=== PATIENT | male | born 1960 | race Caucasian/White ===

== ENCOUNTER 2019-02-12 01:21 | Outpatient (CLI) | payer MEDICAID, SELFPAY ==
[2019-02-12 12:09] LABS: HCT 48.9 % (40.0-50.0); Mean Corp. HGB Concentration 34.8 g/dL (32.0-36.0); Mean Corpuscular Hemoglobin 30.2 pg (27.0-33.0); Mean Corpuscular Volume 86.9 fL (80-95); Mean Platelet Volume 10.1 fL (8.0-11.0); Platelet Count 241 x1000/uL (130-400); RBC 5.63 m/cumm (4.50-6.00); RBC Distribution Width 12.6 % (11.8-14.1); White Blood Cell Count 6.13 k/cumm (4.4-10.8)
[2019-02-12 12:19] LABS: Hemoglobin A1C 5.7 % (4.5-6.2)
[2019-02-12 12:23] LABS: CREATININE 1.19 mg/dL (0.70-1.30); Calculated LDL 125 mg/dL; Cholesterol 181 mg/dL (50-200); HDL Cholesterol 38 mg/dL (40-60); Triglyceride 90 mg/dL (30-150)
[2019-02-14 16:09] LABS: MTHFR A1298C Mutation Analysis Negative (Negative); Methylenetetrahydrofol Reduc M Heterozygous (Negative)
== END 2019-02-12 01:41 ==
PROVIDERS: PCP Family Medicine; Visit Provider Family Medicine
DX: E66.9 Obesity, unspecified (principal); E74.39 Other disorders of intestinal carbohydrate absorption; R53.83 Other fatigue; Z13.71 Encounter for nonprocreative screening for genetic disease carrier status
CPT/HCPCS: 36415; 80061; 81291; 83721; 85027; 82565; 83036

== ENCOUNTER 2019-03-04 01:46 | Outpatient (CLI) | payer MEDICAID, SELFPAY ==
[2019-03-05 09:52] LABS: PSA, Screening 2.4 ng/ml (0-3.5)
[2019-03-05 11:13] LABS: Homocysteine 15.3 umol/L (4.5-12.4)
== END 2019-03-04 02:06 ==
PROVIDERS: PCP Family Medicine; Visit Provider Family Medicine
DX: D68.59 Other primary thrombophilia (principal); Z12.5 Encounter for screening for malignant neoplasm of prostate
CPT/HCPCS: 36415; 83090; 84153

== ENCOUNTER 2019-07-24 11:03 | Outpatient (CLI) | payer MEDICAID, SELFPAY ==
[2019-07-25 15:17] LABS: PSA, Screening 2.7 ng/mL (0.0-3.5)
== END 2019-07-24 11:23 ==
PROVIDERS: PCP Family Medicine; Visit Provider Nurse Practitioner Gerontology
DX: Z80.42 Family history of malignant neoplasm of prostate (principal); Z12.5 Encounter for screening for malignant neoplasm of prostate
CPT/HCPCS: 36415; 84153

== ENCOUNTER 2023-05-18 02:11 | Outpatient (CLI) | payer MEDICAID, SELFPAY ==
[2023-05-18 12:21] LABS: Calculated LDL 128 mg/dL (<100); Cholesterol 194 mg/dL (<200); HDL Cholesterol 43 mg/dL (40-60); Triglyceride 116 mg/dL (<150)
[2023-05-18 12:35] LABS: Hemoglobin A1C 5.7 % (<5.7)
== END 2023-05-18 02:12 | disposition home or self-care (01) ==
LOC: LOS 02:11
PROVIDERS: PCP Family Medicine; Visit Provider Family Medicine
DX: E78.5 Hyperlipidemia, unspecified (principal); E11.51 Type 2 diabetes mellitus with diabetic peripheral angiopathy without gangrene
CPT/HCPCS: 36415; 80061; 83036

== ENCOUNTER 2024-09-16 00:48 | Outpatient (CLI) | payer MEDICAID, SELFPAY ==
[2024-09-16 12:41] LABS: Calculated LDL 118 mg/dL (<100); Cholesterol 180 mg/dL (<200); HDL Cholesterol 49 mg/dL (40-60); Triglyceride 66 mg/dL (<150)
[2024-09-16 17:38] LABS: PSA, Screening 5.2 ng/mL (<=4.5)
== END 2024-09-16 00:49 | disposition home or self-care (01) ==
LOC: LOS 00:48
PROVIDERS: PCP Family Medicine; Visit Provider Family Medicine
DX: Z12.5 Encounter for screening for malignant neoplasm of prostate (principal); E78.5 Hyperlipidemia, unspecified; Z23 Encounter for immunization; Z12.11 Encounter for screening for malignant neoplasm of colon
CPT/HCPCS: 36415; 80061; 84153